=== PATIENT | male | born 1975 | race Caucasian/White ===

== ENCOUNTER 2016-04-09 08:17 | Emergency (ER) | payer BC, OTHER ==
[~2016-04-09] VITALS: Ht 188 cm; Wt 104.5 kg
[~2016-04-09 08:17] MED LIST: CHOL100010 PO; GLAT1INJ SQ; IBUP600T44 PO; NRV/5 PO; OMEG10007 PO; [UNRECOGNIZED DRUG - OTHER] PO
[2016-04-09 08:20] VITALS: TEMP 36.6; Ht 188 cm; Wt 104.5 kg
[2016-04-09] MEDS ORDERED: SODIUM CHLORIDE 0.9% 1000ML 1,000 ML IV STA (08:36)
[2016-04-09] MEDS ORDERED: ONDANSETRON INJ 2 MG/ML 2 ML VIAL IV STA (08:36)
[2016-04-09] MEDS ORDERED: KETOROLAC TROMETHAMINE 30 MG/ML VIAL IV STA (08:36)
[2016-04-09] MEDS ORDERED: MoRPHine SULFATE 4 MG/ML 1 ML CARP\\VIAL IV STA ×2 (08:36→08:49)
[2016-04-09 08:46] LABS: BASO % 0.3 %; BASO ABS # 0.03 K/uL (0-0.2); COMPLETE YES; EOS % 1.3 %; IG% 3.7 %; LYMPH % 31.8 %; MEAN CELL VOLUME 83.5 fL (80-100); MEAN CORPUSCULAR HEMOGLOBIN 27.6 pg (25-34); MEAN CORPUSCULAR HGB CONC 33.1 g/dl (32-36); MEAN PLATELET VOLUME 10.3 fL (7.4-10.4); MONO % 11.5 %; NEUT % 51.4 %; PLATELET COUNT 284 K/uL (130-400); RED BLOOD COUNT 5.39 M/uL (4.7-6.1); URINE APPEARANCE CLEAR (CLEAR); URINE BILIRUBIN NEG (NEG); URINE COLOR YELLOW; URINE NITRITE NEG (NEG); URINE SPECIFIC GRAVITY 1.011 (1.000-1.030); UROBILINOGEN NEG (NEG); WHITE BLOOD COUNT 9.44 K/uL (4.8-10.8)
[2016-04-09 08:47] LABS: MANUAL MICROSCOPIC REQUIRED? NO; REVIEW REQ? NO
[2016-04-09 09:07] LABS: BUN/CREATININE RATIO 17.3 (10-20); CALCIUM 9.1 mg/dl (8.5-10.1); CREATININE 0.97 mg/dl (0.60-1.40); POTASSIUM 3.8 mmol/L (3.5-5.1)
[2016-04-09 09:10] LABS: ALB/GLOB RATIO 1.4 (0.9-2)
[2016-04-09] MEDS ORDERED: NRV/10 PO (09:24)
[2016-04-09] MEDS ORDERED: ALL100 PO (09:24)
[2016-04-09] MEDS ORDERED: FING1CAP PO (09:24)
--- NOTE | 2016-04-09 09:59 | DIAGNOSTIC IMAGING REPORT ---
CT OF THE ABDOMEN AND PELVIS WITHOUT CONTRAST, STONE PROTOCOL CLINICAL HISTORY: Right flank pain. COMPARISON STUDY: None. TECHNIQUE: Helical axial images of the abdomen and pelvis were obtained without IV or oral contrast according to renal stone protocol. FINDINGS: There is mild to moderate cardiomegaly. A 3 mm distal right ureteral calculus results in mild right hydroureteronephrosis. There are bilateral renal calculi. There are no left ureteral calculi. The renal calculi measure up to 4 mm. There is minimal right periureteral infiltration. There is no evidence for a bowel obstruction. Evaluation of the remainder of the abdomen and pelvis is suboptimal on this unenhanced exam. There is no lymphadenopathy. The appendix is normal. Skeletal structures are unremarkable. IMPRESSION: 1. 3 mm distal right ureteral calculus with resultant mild right hydroureteronephrosis. 2. Bilateral nephrolithiasis. 3. Mild to moderate cardiomegaly. Electronically signed by: Rolf Lind M.D. 04/09/2016 9:57 AM Dictated Date/Time: 04/09/2016 9:35 AM
[2016-04-09 10:31] VITALS: BP 103/82; PULSE 69; O2SAT 98
[2016-04-09] MEDS ORDERED: HYDR-5688 PO (10:34)
--- NOTE | 2016-04-09 15:58 | EMERGENCY ROOM VISIT NOTE ---
ED Visit Note First contact with patient: 08:36 CHIEF COMPLAINT: Right Flank and abdominal pain today HISTORY OF PRESENT ILLNESS: This 41-year-old white male patient had sudden onset of pain in the right flank and right lower quadrant of the abdomen about 30 minutes ago. There is nausea but no vomiting. The patient has not noticed any blood in urine or had any increased frequency or pain with urination recently. There is no history of kidney stones. He states kidney stones do run in his family and both parents and his sister have had them. The pain is steady and severe. He is writhing on the bed. His accompanies him today. He denies any trauma. No previous abdominal surgery. REVIEW OF SYSTEM: HEENT: No dizziness, visual problems, hearing loss, or tinnitus. There is no difficulty swallowing and no oral lesions are present. LYMPH: No adenopathy. PULMONARY: No cough, shortness of breath, sputum production or hemoptysis. CARDIOVASCULAR: No chest pain, palpitations, shortness of breath or peripheral edema. GASTROINTESTINAL: No diarrhea, constipation, nausea, vomiting, or abdominal pain. GENITOURINARY: No dysuria, frequency, urgency or nocturia. NEUROLOGIC: No weakness, muscle tenderness, epilepsy or history of neurological problems. MUSCULOSKELETAL: No history of joint tenderness/swelling. No history of arthritis or arthralgias. Positive history of MS. SKIN: No rashes or lesions. PSYCHIATRIC: No history of depression or mental illness. ENDOCRINE: No history of diabetes, thyroid disorders, or abnormal hair growth. PMH: Supplemental sheet was reviewed and signed. Previous surgeries: None Medical history: MS, hypertension, gout Current medications: None Allergies: NKDA Family history: Significant for kidney stones SOCIAL HISTORY: Patient lives at home with his . Non-smoker, no excessive alcohol use. PHYSICAL EXAM: Vital Signs: Afebrile. Reviewed and filed in patient's chart. General: Well-developed, well-nourished, young white male, in obvious discomfort. He is writhing on the bed. Alert and oriented. The patient is restless. Skin: Warm and dry with good turgor. No rashes or lesions. No ecchymosis or erythema. The patient is not diaphoretic. No abrasions. HEART: Regular rate and rhythm without murmurs, ectopy, gallops, or rubs. Peripheral pulses are 2+. LUNGS: Clear to auscultation and breath sounds equal. No wheezes , rales, or rhonchi. Good air movement. ABDOMEN: Soft, right lower quadrant tenderness, no hepato-splenomegaly, or masses. There is right CVA tenderness. NEUROLOGICAL: Sensory and motor functions grossly intact. EYES: PERRL, EOMI, no discharge or injection. EMERGENCY DEPARTMENT COURSE: Urinalysis shows no blood. CT scan of the abdomen and pelvis without contrast shows a 3 mm stone in the distal ureter. CBC and PRP were obtained. They are unremarkable. IV was established. The patient was given Toradol 30 mg IV, morphine 4 mg IV 2, and Zofran 4 mg IV for the pain. The pain had almost disappeared by the time of discharge. DIAGNOSIS: Right ureterolithiasis with 3 mm stone DISCHARGE INSTRUCTIONS AND TREATMENT: The patient was educated regarding today' s findings. Conservative care measures were discussed. High fluid intake. Prescription was given for [place] 1-2 tablets every 6 hours if needed for pain. Driving precautions were given. Return to the ER if the pain becomes severe. Kidney stone handout was provided. He is aware that this should pass without much difficulty. He does have additional renal calculi that may cause pain in the future. Possibility of UTI, appendicitis, bowel obstruction, and nephritis were also considered. Current/Historical Medications Scheduled Allopurinol (Allopurinol), 1 TAB PO DAILY Amlodipine Besylate (Amlodipine Besylate), 1 TAB PO DAILY Fingolimod Hcl (Gilenya), 1 CAP PO DAILY Scheduled PRN Hydrocodone/Acetaminophen 5MG/325MG ([place] 5MG/325MG), 1-2 TABLET PO Q6H PRN for Pain Ibuprofen (Motrin), 600 MG PO prn PRN for Pain Allergies Coded Allergies: No Known Allergies (Unverified , 04/09/16) Vital Signs Date Time Temp Pulse Resp B/P Pulse Ox O2 Delivery O2 Flow Rate FiO2 04/09/16 10:31 69 18 103/82 98 Room Air 04/09/16 08:20 36.6 62 18 145/93 97 Room Air Laboratory Results 04/09/16 08:35 Red Blood Count 5.39, Mean Corpuscular Volume 83.5, Mean Corpuscular Hemoglobin 27.6, Mean Corpuscular Hemoglobin Concent 33.1, Mean Platelet Volume 10.3, Neutrophils (%) (Auto) 51.4, Lymphocytes (%) (Auto) 31.8, Monocytes (%) (Auto) 11.5, Eosinophils (%) (Auto) 1.3, Basophils (%) (Auto) 0.3, Neutrophils # (Auto ) 4.85, Lymphocytes # (Auto) 3.00, Monocytes # (Auto) 1.09, Eosinophils # (Auto ) 0.12, Basophils # (Auto) 0.03 04/09/16 08:35 Test 04/09/16 08:35 White Blood Count 9.44 K/uL (4.8-10.8) Red Blood Count 5.39 M/uL (4.7-6.1) Hemoglobin 14.9 g/dL (14.0-18.0) Hematocrit 45.0 % (42-52) Mean Corpuscular Volume 83.5 fL (80-100) Mean Corpuscular Hemoglobin 27.6 pg (25-34) Mean Corpuscular Hemoglobin Concent 33.1 g/dl (32-36) Platelet Count 284 K/uL (130-400) Mean Platelet Volume 10.3 fL (7.4-10.4) Neutrophils (%) (Auto) 51.4 % Lymphocytes (%) (Auto) 31.8 % Monocytes (%) (Auto) 11.5 % Eosinophils (%) (Auto) 1.3 % Basophils (%) (Auto) 0.3 % Neutrophils # (Auto) 4.85 K/uL (1.4-6.5) Lymphocytes # (Auto) 3.00 K/uL (1.2-3.4) Monocytes # (Auto) 1.09 K/uL (0.11-0.59) Eosinophils # (Auto) 0.12 K/uL (0-0.5) Basophils # (Auto) 0.03 K/uL (0-0.2) RDW Standard Deviation 43.5 fL (36.4-46.3) RDW Coefficient of Variation 14.4 % (11.5-14.5) Immature Granulocyte % (Auto) 3.7 % Immature Granulocyte # (Auto) 0.35 K/uL (0.00-0.02) Urine Color YELLOW Urine Appearance CLEAR (CLEAR) Urine pH 7.0 (4.5-7.5) Urine Specific [place] 1.011 (1.000-1.030) Urine Protein NEG (NEG) Urine Glucose (UA) NEG (NEG) Urine Ketones NEG (NEG) Urine Occult Blood NEG (NEG) Urine Nitrite NEG (NEG) Urine Bilirubin NEG (NEG) Urine Urobilinogen NEG (NEG) Urine Leukocyte Esterase NEG (NEG) Anion Gap 10.0 mmol/L (3-11) Est Creatinine Clear Calc Drug Dose 130.5 ml/min Estimated GFR () 112.7 Estimated GFR (Non- 97.3 BUN/Creatinine Ratio 17.3 (10-20) Calcium Level 9.1 mg/dl (8.5-10.1) Total Bilirubin 0.6 mg/dl (0.2-1) Aspartate Amino Transf (AST/SGOT) 19 U/L (15-37) Alanine Aminotransferase (ALT/SGPT) 41 U/L (12-78) Alkaline Phosphatase 80 U/L (45-117) Total Protein 7.2 gm/dl (6.4-8.2) Albumin 4.2 gm/dl (3.4-5.0) Globulin 3.0 gm/dl (2.5-4.0) Albumin/Globulin Ratio 1.4 (0.9-2) Medications Administered Medications (Trade) Dose Ordered Sig/Alda Route Start Time Stop Time Status Last Admin Dose Admin Sodium Chloride (Nss 1000ml) 1,000 ml @ 999 mls/hr Q1H1M STAT IV 04/09/16 08:36 04/09/16 09:36 DC 04/09/16 08:46 999 MLS/HR Morphine Sulfate (MoRPHine SULFATE INJ) 4 mg NOW STAT IV 04/09/16 08:36 04/09/16 08:39 DC 04/09/16 08:46 4 MG Ondansetron HCl (Zofran Inj) 4 mg NOW STAT IV 04/09/16 08:36 04/09/16 08:39 DC 04/09/16 08:47 4 MG Ketorolac Tromethamine (Toradol Inj) 30 mg NOW STAT IV 04/09/16 08:36 04/09/16 08:39 DC 04/09/16 08:47 30 MG Morphine Sulfate (MoRPHine SULFATE INJ) 4 mg NOW STAT IV 04/09/16 08:49 04/09/16 08:50 DC 04/09/16 08:53 4 MG Departure Information Impression Primary Impression: Renal colic on right side Additional Impression: Ureterolithiasis Dispostion Home / Self-Care Condition GOOD Prescriptions Hydrocodone/Acetaminophen 5MG/325MG ([place] 5MG/325MG) Tab 1-2 TABLET PO Q6H Y for Pain, #12 TAB For Initial Treatment Prov: Andrez Molina,P.A. 04/09/16 Forms Adult Anesthesia/Sedation, Call Back Authorization, HOME CARE DOCUMENTATION FORM , Kidney stone size in mm: 3 MOTRIN USE, [facility], RENAL COLIC (KIDNEY STONES), TYLENOL USE, IMPORTANT VISIT INFORMATION Patient Instructions A Signature Page, Kidney Stones - [facility] Additional Instructions Maintain hydration Tylenol and Motrin every 6 hours as needed for discomfort If pain is not relieved, use [place] one to 2 tablets every 6 hours as needed Follow-up with your PCP
== END 2016-04-09 10:53 | disposition home or self-care (01) ==
LOC: C.EDB 08:19
DX: N20.1 Calculus of ureter (principal); I10 Essential (primary) hypertension; G35 Multiple sclerosis; M10.9 Gout, unspecified; Z79.899 Other long term (current) drug therapy; Z88.8 Allergy status to other drugs, medicaments and biological substances; Z84.1 Family history of disorders of kidney and ureter

== ENCOUNTER → 2017-05-08 | Outpatient (CLI) | payer OTHER ==
[~2017-05-08] MED LIST changes: +ALL100 PO; -CHOL100010 PO; +FING1CAP PO; +GADAVIST IV PRN; -GLAT1INJ SQ; +NRV/10 PO; -NRV/5 PO; -OMEG10007 PO; -[UNRECOGNIZED DRUG - OTHER] PO
--- NOTE | 2017-05-08 18:02 | DIAGNOSTIC IMAGING REPORT ---
MRI OF THE BRAIN WITHOUT AND WITH IV CONTRAST CLINICAL HISTORY: G35 Multiple sclerosis COMPARISON STUDY: 03/10/2016 TECHNIQUE: MRI of the brain was performed from the vertex to the skull base utilizing various T1 and T2 weighted sequences. Following the IV administration of 10 mL of Gadavist contrast, additional enhanced images were obtained. FINDINGS: Sagittal T1, axial diffusion, proton density and T2 weighted axial, coronal FLAIR, and pre and post axial T1-weighted images were acquired. These were supplemented with post gadolinium coronal T1 weighted images. No intra or extra-axial mass lesions are visualized. Axial diffusion-weighted images reveal no evidence of acute or subacute infarction. There is no evidence of ventricular dilatation. Proton density T2-weighted and FLAIR images reveal persistent foci of increased T2 signal within the periventricular deep white matter. The orientation and number of lesions remain similar to the prior study. There are no abnormal flow voids. There is no evidence of pathologic enhancement. IMPRESSION: 1. No significant change from the preceding study 2. Persistent foci of increased T2 signal within the periventricular white matter, essentially unchanged from the preceding study. The findings are consistent with the clinical diagnosis of multiple sclerosis. There are no foci of pathologic enhancement to indicate "active plaques". Electronically signed by: Lennox Krishnamurthy M.D. 05/08/2017 6:00 PM Dictated Date/Time: 05/08/2017 5:57 PM
== END | disposition home or self-care (01) ==
LOC: C.MRI 16:41
PROVIDERS: ATTEND Psychiatry & Neurology Neurology
DX: G35 Multiple sclerosis (principal)